=== PATIENT | male | born 1985 ===

== ENCOUNTER 2021-07-07 03:29 | Emergency (ER) | payer SELFPAY ==
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
== END 2021-07-07 03:47 ==
LOC: DL.ED 03:29
DX: S01.01XA Laceration without foreign body of scalp, initial encounter (principal); S01.419A Laceration without foreign body of unspecified cheek and temporomandibular area, initial encounter; S01.21XA Laceration without foreign body of nose, initial encounter; S01.512A Laceration without foreign body of oral cavity, initial encounter; Y04.0XXA Assault by unarmed brawl or fight, initial encounter; Y92.000 Kitchen of unspecified non-institutional (private) residence as the place of occurrence of the external cause
CPT/HCPCS: 99284

== ENCOUNTER 2021-07-07 10:12 | Emergency (ER) | payer SELFPAY ==
[2021-07-07] MEDS ORDERED: Cephalexin 500 MG Cap PO ONE (10:24)
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
[2021-07-07] MEDS ORDERED: Diphtheria,Pertussis(Acell),Tetanus Vaccine 0.5 ML Syringe IM ONE (10:25)
== END 2021-07-07 10:40 ==
LOC: DL.ED 10:12
DX: S01.81XA Laceration without foreign body of other part of head, initial encounter (principal); S00.03XA Contusion of scalp, initial encounter; Z23 Encounter for immunization; Y04.0XXA Assault by unarmed brawl or fight, initial encounter
CPT/HCPCS: 90471; 90715; 99283; A9270